=== PATIENT | male | born 1990 | race Caucasian/White ===

== ENCOUNTER 2017-04-27 11:10 | Emergency (ER) | payer OTHER ==
[2017-04-27 11:16] VITALS: BMI 27.4
[2017-04-27] MEDS ORDERED: KETOROLAC TROMETHAMINE 60 MG/2 ML VIAL IM ONE (13:54)
[2017-04-27] MEDS ORDERED: CYCLOBENZAPRINE HCL 10 MG TABLET (FP) PO ONE (13:54)
--- NOTE | 2017-04-27 14:02 | PDOC ---
History of Present Illness - General Chief Complaint: Syncope/Near Syncope Stated Complaint: BACK PAIN Time Seen by Provider: 04/27/17 11:49 History Source: Patient Exam Limitations: No Limitations - History of Present Illness Initial Comments: 04/27/17 13:47 26-year-old male presents to the ED with complaints of low back pain since yesterday worsening in severity today. Pt states while sitting at the breakfast table, he started feeling nauseous followed by him fainting. Patient states his [id number] caught him but did have a brief loss of consciousness episode. 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 Patient states did seek medical help but was discharged after receiving medication without an x-ray. Occurred: reports: yesterday Severity: reports: moderate Pain Location: reports: back Method of Injury: Yes: unknown Modifying Factors: improves with: None Loss of Consciousness: brief (seconds) Associated Symptoms (Fall): muscle spasms Past History - Past Medical History Allergies/Adverse Reactions: Allergies Allergy/AdvReac Type Severity Reaction Status Date / Time No Known Allergies Allergy Verified 04/27/17 11:11 Other medical history: NONE - Psycho/Social/Smoking Cessation Hx Anxiety: No Suicidal Ideation: No Smoking History: Never smoked Have you smoked in the past 12 months: No Information on smoking cessation initiated: No Hx Alcohol Use: No Drug/Substance Use Hx: No Substance Use Type: None Patient Lives Alone: No Lives with/in: spouse/SO Trauma Specific PMHX - Complaint Specific PMHX Back Injury: Yes Review of Systems - Review of Systems Able to Perform ROS?: Yes Constitutional: No: Symptoms Reported HEENTM: No: Symptoms Reported Respiratory: No: Symptoms reported Cardiac (ROS): No: Symptoms Reported ABD/GI: No: Symptoms Reported : No: Symptoms Reported Musculoskeletal: Yes: Back Pain (low) Integumentary: No: Symptoms Reported Neurological: No: Symptoms reported Endocrine: No: Symptoms Reported Hematologic/Lymphatic: No: Symptoms Reported *Physical Exam - Vital Signs Last Vital Signs Temp Pulse Resp BP Pulse Ox 98.0 F 83 18 125/74 100 04/27/17 11:11 04/27/17 11:11 04/27/17 11:11 04/27/17 11:11 04/27/17 11:11 - Physical Exam General Appearance: Yes: Nourished, Appropriately Dressed. No: Apparent Distress HEENT: negative: Pale Conjunctivae Neck: positive: Supple. negative: Tender, Decreased range of motion Respiratory/Chest: positive: Lungs Clear, Normal Breath Sounds. negative: Respiratory Distress, Accessory Muscle Use Cardiovascular: positive: Regular Rhythm, Regular Rate. negative: Murmur Gastrointestinal/Abdominal: positive: Soft. negative: Tenderness Musculoskeletal: positive: Muscle Spasm (l4-L5 bilateral). negative: Vertebral Tenderness (no midline tenderness. ) Extremity: positive: Normal Capillary Refill, Normal Inspection, Normal Range of Motion. negative: Pedal Edema Integumentary: positive: Normal Color, Warm, Moist Neurologic: positive: Motor Strength 5/5 (ambulatory) ED Treatment Course - RADIOLOGY Radiology Studies Ordered: Category Date Time Status SPINE-LUMBAR ONLY [RAD] Stat Radiology 04/27/17 13:54 Ordered Medical Decision Making - Medical Decision Making 04/27/17 14:08 patient with acute low back pain since yesterday worsening severity causing him of brief loss of consciousness episode while sitting at the table this morning. Patient denies history of back pain, incontinence, saddle anesthesia, radiation of pain, weakness or lower extremities, or sensory changes distally. On exam patient had no point tenderness to his lumbar region although he complains of sharp tight discomfort to the area. Patient will be ordered for an x-ray of his lumbar spine including Flexeril and IM Toradol 04/27/17 16:39 lumbar x-ray shows No acute findings. Patient states feeling much better and able to ambulate in the ER. Patient be discharged home with Flexeril and Motrin. *DC/Admit/Observation/Transfer Diagnosis at time of Disposition: Low back pain Qualifiers: Chronicity: acute Back pain laterality: bilateral Sciatica presence: without sciatica Qualified Code(s): M54.5 - Low back pain - Discharge Dispostion Disposition: HOME Condition at time of disposition: Improved - Referrals Referrals: Matti Leigh MD [Staff Physician] - - Patient Instructions Printed Discharge Instructions: DI for Low Back Pain Additional Instructions: Please take medication as prescribed. Avoid movements that trigger your discomfort. If pain continues greater than 5 days consider follow-up with your primary care physician and/or follow-up with referred orthopedist
[2017-04-27] MEDS ORDERED: KETOROLAC TROMETHAMINE 60 MG/2 ML VIAL ONE (15:09)
[2017-04-27] MEDS ORDERED: CYCLOBENZAPRINE HCL 10 MG TABLET (FP) ONE (15:10)
[2017-04-27 17:04] VITALS: BP 128/65; PULSE 75; TEMP 98
--- NOTE | 2017-05-05 10:43 | EKG ---
Test Reason : Blood Pressure : / mmHG Vent. Rate : 068 BPM Atrial Rate : 068 BPM P-R Int : 136 ms QRS Dur : 090 ms QT Int : 364 ms P-R-T Axes : 042 074 033 degrees QTc Int : 387 ms NORMAL SINUS RHYTHM NORMAL ECG NO PREVIOUS ECGS AVAILABLE Confirmed by BONNIE FAITH, HEENA ([id number]) on 05/05/2017 10:42:29 AM Referred By: Confirmed By:HEENA NICOLE MD
== END 2017-04-27 17:03 | disposition home or self-care (01) ==
LOC: JER 11:10
PROC: 3E0233Z Introduction of Anti-inflammatory into Muscle, Percutaneous Approach (ICD-10-PCS; principal; 2017-04-27)
DX: M54.5 Low back pain (principal)
CPT/HCPCS: 72100-TC; 93005; 93010; 99284-25

== ENCOUNTER 2020-08-06 20:38 | Emergency (ER) | payer OTHER ==
[2020-08-06] MEDS ORDERED: MECLIZINE HCL 25 MG TABLET (FP) PO ONE (20:48)
[2020-08-06] MEDS ORDERED: SODIUM CHLORIDE 1,000 ML IV STA (20:48)
--- NOTE | 2020-08-06 20:48 | PDOC ---
Rapid Medical Evaluation Time Seen by Provider: 08/06/20 20:45 Medical Evaluation: Allergies Allergy/AdvReac Type Severity Reaction Status Date / Time No Known Allergies Allergy Verified 04/27/17 11:11 08/06/20 20:46 I have performed a brief in-person evaluation of this patient. CC: dizziness with change of position worse with flexion/extension of lumbar spine PE: No focal findings Orders: ekg, labs, meclizine Patient will proceed to ED for further evaluation. 08/06/20 20:47 Discharge Disposition - Diagnosis Dizziness - Referrals - Patient Instructions - Post Discharge Activity
[2020-08-06 20:49] VITALS: BP 131/80; PULSE 69; TEMP 98.1; BMI 24.9
--- NOTE | 2020-08-06 21:26 | PDOC ---
*Physical Exam - Vital Signs Last Vital Signs Temp Pulse Resp BP Pulse Ox 98.1 F 69 20 131/80 99 08/06/20 20:46 08/06/20 20:46 08/06/20 20:46 08/06/20 20:46 08/06/20 20:46 Medical Decision Making - Medical Decision Making 08/06/20 21:26 Patient seen by the advanced practice provider under my supervision. Ancillary testing reviewed as necessary. I agree with plan as outlined by the advanced practice provider. Discharge - Discharge Information Clinical Impression/Diagnosis: Dizziness - Follow up/Referral - Patient Discharge Instructions - Post Discharge Activity
--- NOTE | 2020-08-06 21:47 | PDOC ---
History of Present Illness - General Chief Complaint: Headache Stated Complaint: HEADACHE Time Seen by Provider: 08/06/20 20:45 History Source: Patient - History of Present Illness Initial Comments: 08/06/20 22:23 30-year-old male complaining of dizziness since 10 AM this morning. Patient reports worsening dizziness with movement. Denies chest pain, nausea, vomiting, headache. patient sent from urgent care for evaluation. Past History - Medical History Allergies/Adverse Reactions: Allergies Allergy/AdvReac Type Severity Reaction Status Date / Time No Known Allergies Allergy Verified 04/27/17 11:11 Home Medications: Ambulatory Orders Cyclobenzaprine HCl [Flexeril 10 mg] 5 mg PO BID PRN #12 tablet 04/27/17 Ibuprofen [Motrin -] 600 mg PO TID PRN #21 tablet 04/27/17 Meclizine HCl [Antivert -] 25 mg PO TID PRN #21 tablet 08/07/20 COPD: No - Psycho-Social/Smoking History Smoking History: Never smoked Have you smoked in the past 12 months: No - Substance Abuse Hx (Audit-C & DAST Scrn) How often the patient has a drink containing alcohol: Monthly or less Score: In Men: 4 or > Positive; In Women: 3 or > Positive: 1 Screen Result (Pos requires Nsg. Audit-10AR): Negative Review of Systems - Review of Systems Able to Perform ROS?: Yes Is the patient limited Azeri proficient: No Constitutional: No: Symptoms Reported, See HPI, Chills, Diaphoresis, Fever, Loss of Appetite, Malaise, Night Sweats, Weakness, Weight Stable, Unintentional Wgt. Loss, Unexplained wgt Loss, Other Cardiac (ROS): Yes: Lightheadedness. No: Symptoms Reported, See HPI, Chest Pain, Edema, Irregular Heart Rate, Palpitations, Syncope, Chest Tightness, Other Neurological: No: Symptoms reported, See HPI, Headache, Numbness, Paresthesia, Pre-Existing Deficit, Seizure, Tingling, Tremors, Weakness, Unsteady Gait, Ataxia, Dizziness, Other *Physical Exam - Vital Signs Last Vital Signs Temp Pulse Resp BP Pulse Ox 98.1 F 69 20 131/80 99 08/06/20 20:46 08/06/20 20:46 08/06/20 20:46 08/06/20 20:46 08/06/20 20:46 - Physical Exam General Appearance: Yes: Appropriately Dressed HEENT: positive: Other (+ nystagmus) Respiratory/Chest: positive: Lungs Clear, Normal Breath Sounds Extremity: positive: Normal Capillary Refill, Normal Inspection Integumentary: positive: Normal Color, Dry, Warm Neurologic: positive: cloth dyeing range tender II-XII NML intact, Fully Oriented, Alert, Normal Mood/Affect, Normal Response, Motor Strength 5/5, Other (neg aman stringer pike) ED Treatment Course - LABORATORY CBC & Chemistry Diagram: 08/06/20 22:00 08/06/20 22:00 ED Progress Note - Progress Note Progress Note: A: vertigo P: labs ct head meclizine ekg IVF Medical Decision Making - Medical Decision Making 08/07/20 00:41 ct head negative. patient is feeling better. will d/c home Discharge - Discharge Information Problems reviewed: Yes Clinical Impression/Diagnosis: Dizziness, Vertigo Condition: Stable Disposition: HOME - Additional Discharge Information Prescriptions: Meclizine HCl [Antivert -] 25 mg PO TID PRN #21 tablet PRN Reason: Vertigo - Follow up/Referral - Patient Discharge Instructions Patient Printed Discharge Instructions: Vertigo Additional Instructions: Drink plenty of fluids. It is important that you follow-up with your primary doctor Return to the emergency room for any worsening symptoms - Post Discharge Activity Work/Back to School Note: Back to Work
[2020-08-06] MEDS ORDERED: MECLIZINE HCL 25 MG TABLET (FP) ONE (21:59)
[2020-08-06 22:29] LABS: BASO % 0.8 % (0-2.0); EOS % 3.6 % (0-4.5); HEMATOCRIT 43.2 % (35.4-49); HEMOGLOBIN 14.4 GM/dL (11.7-16.9); LYMPH % 31.6 % (8-40); MCH 28.1 pg (25.7-33.7); MCHC 33.4 g/dl (32.0-35.9); MEAN PLT VOLUME 9.4 fl (7.5-11.1); MONO % 9.2 % (3.8-10.2); NEUT % 54.8 % (42.8-82.8); PLATELET COUNT 221 K/MM3 (134-434); RBC 5.14 M/mm3 (4.00-5.60); RDW 13.8 % (11.9-15.9); WHITE BLOOD COUNT 7.8 K/mm3 (4.0-10.0)
[2020-08-06 22:54] LABS: ALBUMIN 4.3 g/dl (3.4-5.0); BILIRUBIN,TOTAL 0.4 mg/dL (0.2-1); BLOOD UREA NITROGEN 10.3 mg/dL (7-18); CALCIUM 9.3 mg/dL (8.5-10.1); CREATININE 0.8 mg/dL (0.55-1.3); POTASSIUM 3.8 mmol/L (3.5-5.1); TOT PROT 7.5 g/dl (6.4-8.2)
--- NOTE | 2020-08-07 11:08 | EKG ---
Test Reason : Blood Pressure : / mmHG Vent. Rate : 068 BPM Atrial Rate : 068 BPM P-R Int : 132 ms QRS Dur : 092 ms QT Int : 392 ms P-R-T Axes : 043 069 034 degrees QTc Int : 416 ms NORMAL SINUS RHYTHM NORMAL ECG WHEN COMPARED WITH ECG OF 27-APR-2017 12:09, NO SIGNIFICANT CHANGE WAS FOUND Confirmed by MD Fraga Edward ([id number]) on 08/07/2020 11:08:05 AM Referred By: Confirmed By:Samson Fraga MD
== END 2020-08-07 00:58 | disposition home or self-care (01) ==
LOC: JER 20:38
PROC: 3E0337Z Introduction of Electrolytic and Water Balance Substance into Peripheral Vein, Percutaneous Approach (ICD-10-PCS; principal; 2020-08-06)
DX: R42 Dizziness and giddiness (principal)
CPT/HCPCS: 36415; 70450-TC; 80053; 85025; 93005; 93010; 99285-25

== ENCOUNTER 2021-06-21 18:44 | Emergency (ER) | payer SELFPAY ==
[2021-06-21 18:51] VITALS: BP 142/67; PULSE 81; TEMP 97.7; BMI 24.9
[2021-06-21 21:06] LABS: BASO % 0.7 % (0-2.0); HEMATOCRIT 42.1 % (35.4-49); HEMOGLOBIN 14.2 GM/dL (11.7-16.9); LYMPH % 32.2 % (8-40); MCH 28.8 pg (25.7-33.7); MCHC 33.6 g/dl (32.0-35.9); MEAN CELL VOLUME 85.7 fl (80-96); MEAN PLT VOLUME 8.8 fl (7.5-11.1); NEUT % 53.1 % (42.8-82.8); PLATELET COUNT 220 10^3/uL (134-434); RBC 4.91 M/mm3 (4.00-5.60); RDW 13.9 % (11.9-15.9); WHITE BLOOD COUNT 7.8 K/mm3 (4.0-10.0)
[2021-06-21 21:21] LABS: CHLORIDE 105 mmol/L (98-107); SODIUM 139 mmol/L (136-145)
[2021-06-21 21:24] LABS: ANION GAP 6 MMOL/L (8-16); BLOOD UREA NITROGEN 15.4 mg/dL (7-18); CALCIUM 8.6 mg/dL (8.5-10.1); CO2 28 mmol/L (21-32); GLUCOSE,RANDOM 88 mg/dL (74-106)
[2021-06-21 21:27] LABS: CREATININE 0.9 mg/dL (0.55-1.3); SGOT/AST 16 U/L (15-37); SGPT/ALT 21 U/L (13-61)
[2021-06-21 21:29] LABS: BILIRUBIN,TOTAL 0.3 mg/dL (0.2-1)
[2021-06-21 21:30] LABS: ALK PHOS 61 U/L (45-117)
== END 2021-06-21 22:50 | disposition home or self-care (01) ==
LOC: JER 18:44
DX: R55 Syncope and collapse (principal)
CPT/HCPCS: 36415; 71045-TC-FY; 80053; 82550; 84484; 85025; 93005; 93010; 99285-25; C9803; U0003; U0005